=== PATIENT | female | born 1990 | race Caucasian/White ===

== ENCOUNTER 2017-03-05 15:52 | Inpatient (IN) | payer OTHER ==
[~2017-03-05] VITALS: Ht 170.2 cm; Wt 80.7 kg
[2017-03-05] MEDS ORDERED: Betameth Ace-Betam SodPhos 6 mg/mL 5 mL Inj IM ONE (16:25)
[2017-03-05 16:37] LABS: Mean Corpuscular Hemoglobin 30.2 pg (27.0-35.0); Mean Corpuscular Volume 91.3 fL (81-100)
--- NOTE | 2017-03-05 17:30 | DRSVH ---
PROCEDURE: US OB BIOPHYSICAL PROFILE AND UMBILICAL DOPPLER INDICATIONS: 26 year-old female with gestational hypertension. OUTSIDE/PRIOR DATING DATA: Last menstrual period (LMP): June 14, 2016. LMP-based estimated date of delivery (JERMAIN): March 21, 2017. First dating scan (date and location): September 11, 2016 at [facility]. Estimated date of delivery (JERMAIN) from first dating scan: April 07, 2017. TECHNIQUE: Real-time scanning was performed of the fetus for biophysical profile, with image documentation. Col or and pulse Doppler interrogation was also performed of the umbilical artery near its insertion into the placenta. COMPARISON: [facility] Ultrasound, US, US OB BIOPHYSICAL+UMB DOP, 03/01/2017, 7:35. [facility] Ultrasound, US, US OB BIOPHYSICAL+UMB DOP, 02/19/2017, 7:36. [facility], [facility], US OB FU GROWTH+BPP+UMB DOP, 02/12/2017, 8:05. [facility] Ultrasoun d, US, US OB REEVAL INCOMP ANATMY LTD, 01/09/2017, 7:45. [facility] Ultrasound, US, US O B FOLLOW UP PER FETUS LTD, 12/08/2016, 16:44. [facility] Ultrasound, US, US OB>14 WKS AN ATOMY COMP, 11/09/2016, 7:31. [facility], US, US OB<14 WKS, 09/11/2016, 8:53. FINDINGS: General: A single living intrauterine gestation is present. Presentation: Vertex. Placenta: Placental position is posterior, without previa. OB-ELEVATOR EXAMINER AND ADJUSTER Ultrasound Procedure Report Summary Fetus Summary Heart Rate: 146 bpm Gestational Age from initial dating scan: 35 weeks, 2 days Findings(Amniotic Sac) Amniotic Fluid Index (TAM): 13.50 cm Pelvis and Uterus Cervix Length (Mean): Obscured by cranium. Biophysical Profile Amniotic Fluid Volume: 2 Breathin Gross Body Movement: 2 Tone: 2 Biophysical Profile Sum Score: 8 Findings(Pelvic Vascular Structure) Umbilical Artery S/D Ratio: 3.09, 2.64, 2.92 IMPRESSION: 1. Single living intrauterine gestation scores 8 of 8 points on biophysical profile. 2. Normal umbilical artery Doppler interrogation, with preserved maternal diastolic flow to the fetus . Dictated by: Benedicto Chew M.D. on 03/05/2017 at 17:23 Approved by: Benedicto Chew M.D. on 03/05/2017 at 17:28
[2017-03-05] MEDS ORDERED: Hemorrhage Kit, Post Partum XX ONE (17:35)
[2017-03-05] MEDS ORDERED: Methylergonovine 0.2 mg/mL Inj IM PRN (17:35)
[2017-03-05] MEDS ORDERED: Sodium Chloride LOK Flush 10 mL Syringe IVFLUSH PRN (17:35)
[2017-03-05] MEDS ORDERED: hydrALAZINE 20 mg/mL Inj IVPUSH PRN (17:35)
[2017-03-05] MEDS ORDERED: Ondansetron 2 mg/mL 2 mL Inj IVPUSH PRN (17:35)
[2017-03-05] MEDS ORDERED: Oxytocin 10 Unit/mL Inj IM PRN (17:35)
[2017-03-05] MEDS ORDERED: Labetalol 5 mg/mL 4 mL Inj IV PRN (17:35)
[2017-03-05] MEDS ORDERED: Carboprost 250 mCg/mL Inj IM PRN (17:35)
[2017-03-05] MEDS ORDERED: PREN1TAB87 PO (18:04)
--- NOTE | 2017-03-05 18:32 | PCM.HPOB ---
Subjective Referring Provider: Admitting Physician: Jazz Short MD Primary Care Physician: Nopcp Attending Physician: Jazz Short MD Chief Complaint elevated blood pressure History of Present History of Present Illness Ms. Rod is a 26 y/o woman at 35 weeks 2 days gestation who presented to the [facility] ([facility]) after an elevated blood pressure reading and nonreactive NST at her office visit. She has been getting weekly NSTs and ultrasounds. She had previously elevated blood pressures at visits. Her blood pressure at 22 weeks 3 days was 140/80 but decreased to 122/ 72 after resting. Her blood pressure was again elevated at 32 weeks 2 days in 140/90s. At that time, PIH labs and random protein/Cr ratio were done, and she was started on weekly testing and PID labs weekly. One week ago, her blood pressure was 160s/90s initially in the office but decreased to 142/98. She was then sent to [facility] for blood pressure monitoring and PIH labs. Today, her blood pressure was 172/84 and her NST was nonreactive in the office. She also had protein in her urine. She was sent to the [facility] and given betamethasone in triage. She does not have contractions or fluid leakage. She has bilateral leg edema but it has improved over the past week. She does not have a headache, blurred vision, dizziness, right upper quadrant pain, or numbness or tingling anywhere. labs: blood type O positive, antibody screen negative, Pap smear negative, Varicella immune, Rubella immune, RPR nonreactive, HBsAg negative, HIV nonreactive, hepatitis C negative, TSH 0.935, chlamydia and gonorrhea negative, 1 hour glucose test within normal limits She received Tdap last week on 02/26/17. OB History: (2), Para (0) Obstetrical Complications: Pre-eclampsia Past Medical History Obstetrical History: G2PO She has history of 1 spontaneous Gynecologic History: Age of menarche 11 y/o No history of STIs No history of abnormal Pap smear Medical History: Denies Surgical History: Tonsillectomy [place] teeth removal Hx Tobacco Use: No Hx Alcohol Use: No Hx Substance Use: No Past Family History Family History breast cancer in maternal aunt and grandmother (genetic testing was done and it is not hereditary) heart disease in maternal grandmother hyperlipidemia in mother Living Arrangement: with Family Review of Systems Constitutional: Y: Chills, Fever Eyes: Denies: Blurred Vision, Double Vision, Vision Changes Cardiovascular: Reports: Edema (in bilateral legs), Denies: Chest Pain, Palpitations, SOB while laying flat Respiratory: Denies: Cough, Pleuritic Chest Pain, SOB with Exertion Gastrointestinal: Denies: Abdominal Pain, Diarrhea, Epigastric pain, Nausea, Vomiting Genitourinary: Denies: Change in Frequency, Dysuria Neurological: Denies: Dizziness, Numbness Endocrine: Reports: Diaphoresis Medications Home medications vitamin Allergy Coded Allergies: No Known Allergies (Unverified , 03/05/17) Exam Vital Signs hypertensive with one diastolic blood pressure of 100, averaging in 135-140s/90s Exam FHR baseline 130-140s with variability and occasional accelerations Constitutional: Well-developed, Well-nourished HEENT: Atraumatic, EOMI, Scleral Anicteric, Mucous Membr Moist/[place] Lungs: Clear to Auscultation, Normal Air Movement Heart: Exam Unremarkable, Regular Rate/Rhythm, Normal S1, Normal S2, No Murmurs /Rubs/Gallops Abdomen: Gravid, Normal bowel sounds, Soft, No tenderness Extremities: Pulses Palpable x4, Warm, Edema (mild bilateral leg edema) Neurological/Psychiatric: Oriented X3, Cooperative, No Acute Distress Neuro: Grossly Neurologically Intact Labs/Diagnostics Labs Item Value Date Time Urine Random Creatinine 100 mg/dL 03/05/17 1640 Urine Random Total Protein 107 mg/dL H 03/05/17 1640 Urine Protein/Creatinine Ratio 1.07 03/05/17 1640 Item Value Date Time Hemoglobin 11.5 g/dL L 03/05/17 1625 Hematocrit 34.8 % L 03/05/17 162 Platelet Count 305 dean/L 03/05/171624 Blood Urea Nitrogen 11 mg/dL 03/05/17 1625 Creatinine 0.86 mg/dL 03/05/17 1625 Uric Acid 6.4 mg/dL 03/05/17 1625 Aspartate Amino Transf (AST/SGOT) 19 U/L 03/05/17 1625 Alanine Aminotransferase (ALT/SGPT) 9 U/L 03/05/17 1625 Ultra Sound PROCEDURE: US OB BIOPHYSICAL PROFILE AND UMBILICAL DOPPLER FINDINGS: General: A single living intrauterine gestation is present. Presentation: Vertex. Placenta: Placental position is posterior, without previa. OB-SURVEY PARTY CHIEF Ultrasound Procedure Report Summary Fetus Summary Heart Rate: 146 bpm Gestational Age from initial dating scan: 35 weeks, 2 days Findings(Amniotic Sac) Amniotic Fluid Index (TAM): 13.50 cm Pelvis and Uterus Cervix Length (Mean): Obscured by cranium. Biophysical Profile Amniotic Fluid Volume: 2 Breathin Gross Body Movement: 2 Tone: 2 Biophysical Profile Sum Score: 8 Findings(Pelvic Vascular Structure) Umbilical Artery S/D Ratio: 3.09, 2.64, 2.92 IMPRESSION: 1. Single living intrauterine gestation scores 8 of 8 points on biophysical profile. 2. Normal umbilical artery Doppler interrogation, with preserved maternal diastolic flow to the fetus. Approved by: Benedicto Chew M.D. on 03/05/2017 at 17:28 Maternal Blood Type: O (positive) Group B Strep Results: Not done (yet at this time) Rubella: Immune Lab History: Negative for: Hx Gonorrhea, Hx HIV, Hx Herpes, Hx Syphilis OB Intrapartum Assessment/Plan Assessment 1. 26 y/o woman at 35 weeks 2 days gestation who [facility] ([facility]) after an elevated blood pressure reading and nonreactive NST at her office visit. Complicated by preeclampsia. - Admitted to [facility] for monitoring of blood pressure and FHR - Pt received a dose of betamethasone in triage - GBS to be performed 2. Preeclampsia - Blood pressures in 135-140s/90s. Elevated protein/creatinine ratio of 1.07. - [facility] was called and consulted. They recommended inpatient observation and if blood pressures elevate further, then proceed with induction - If blood pressures remain elevated in 160s/100s, will proceed with induction of labor and pt will likely need magnesium sulfate. - Continue monitoring blood pressure and FHR. Attending Statement The patient was seen and examined together with Riya Burns DO on and I agree with the history, exam and plan as outlined in the note above. Riya Browning DO Mar 05, 2017 17:37 Jazz Short MD Mar 08, 2017 19:24
[2017-03-06] MEDS ORDERED: Morphine PF 1 mg/mL 10 mL Inj ONE (03:33)
[2017-03-06] MEDS ORDERED: CeFAZolin Inj 2 GM in IV Premix 1 EACH IV STA (03:40)
[2017-03-06] MEDS ORDERED: Sodium Citrate-Citric Acid 15 mL Solution PO SCH (03:40)
--- NOTE | 2017-03-06 03:46 | PCM.PNOBIP ---
Subjective Date of Service Mar 06, 2017 Delivery plan: Primary Ceserean Delivery Subjective Called by RN for bradycardia. Patient placed on hands and knees and oxygen mask applied to patient. bradycardia present for 11 minutes down to 70's with return to baseline with decreased variability. Group B Strep Results: Not done (yet at this time) Rubella: Immune Blood Type: O (positive) Labs Laboratory Tests 03/05/17 16:25: White Blood Count 16.2, Red Blood Count 3.81, Hemoglobin 11.5, Hematocrit 34.8, Mean Corpuscular Volume 91.3, Mean Corpuscular Hemoglobin 30.2, Mean Corpuscular Hemoglobin Concent 33.0, Red Cell Distribution Width 12.6, Platelet Count 305, Hematology Comments Exam Vital Signs Vital Signs Contraction frequency in minutes: MVUs: Heart Tracings Heart Tones Baseline bpm Tocometry/IUPC Contraction frequency in minutes: MVUs: Exam General: Alert, Oriented X3, No Acute Distress OB Intrapartum Assessment/Plan Assessment 1. Preeclampsia now with severe range BP and nonreasuring FHT (episode of bradycardia) 2. Category 3 FHT Problems: (1) Preeclampsia Plan: Plan for primary delivery Status: Acute ICD Code: O14.90 Intrapartum plan: Recommend delivery Jazz Short MD Mar 06, 2017 03:46
[2017-03-06] MEDS ORDERED: Morphine PF 1 mg/mL 10 mL Inj INTRATHEC ONE (03:50)
[2017-03-06] MEDS ORDERED: fentaNYL-PF 50 mCg/mL 2 mL Inj IVPUSH PRN (03:50)
[2017-03-06] MEDS ORDERED: Atropine 0.4 mg/mL Inj IV PRN (03:50)
[2017-03-06] MEDS ORDERED: EPHEDrine Sulfate 50 mg/mL Inj IVPUSH PRN ×2 (03:50→03:55)
[2017-03-06] MEDS ORDERED: Ondansetron 2 mg/mL 2 mL Inj IVPUSH PRN ×2 (03:50→03:55)
--- NOTE | 2017-03-06 03:57 | PCM.HPANE ---
Patient Data Surgeon Admitting Provider:Jazz Short MD Attending Provider:Jazz Short MD Primary Care Physician:Jennifer Other Provider:Dea Mancera Anesthesia Reason for Visit Pre Term Labor Check PRE TERM LABOR CHECK Ht/WT & BMI Body Mass Index Allergies Coded Allergies: No Known Allergies (Unverified , 03/05/17) Diabetes History Hx Diabetes?: No MRSA MRSA: No Medications Hypertension Medication: No Home Meds Incl Beta Flex: No Reported Medications Vit W-Ca,Fe,FA(<1 mg) ( Vitamins)1 Each Tablet1 Each PO DAILY 03/05/17 History Hx of Heart Problems?: No Other History/Comments Recent elevated BP's Hx of Respiratory Problem?: No Hx Neurologic Problems?: No Hx of GI Problems?: No Hx of Problems?: No HX of Peritoneal Dialysis: No Female Hx: Positive for:: Currently Hx Musculoskeletal Problems?: No Hx of Psycho/Social Problems?: No Hx Surgeries?: No Hx Any Other Health Problems?: No Hx Diabetes: No Hx Alcohol Use: NoHx Substance Use: No Stop/Bang Risk Assessment Category Category 1A: Patient has history of documented sleep apnea, and HAS NOT received any narcotic, sedative or anesthesia administration during this stay. Category 1B: Patient has history of documented sleep apnea, and HAS received any narcotic , sedative or anesthesia administration during this stay Category 2: Patient has SUSPECTED Obstructive Sleep Apnea, and HAS received any narcotic , sedative or anesthesia administration during this stay. Category 3: Patient has SUSPECTED Obstructive Sleep Apnea and HAS NOT received narcotic, sedative or anesthesia administration during this stay. Category 4: Outpatient in Procedural Areas with known sleep apnea or who screen positive for High Risk via the STOP/BANG questionnaire. Exam Exam General Appearance: Alert, Oriented X3 HEENT/AIRWAY: MP 2, Neck Movement (FROM) Lungs: Clear to Auscultation, Clear to Percussion Heart: Exam Unremarkable, Regular Rate/Rhythm Meds/Labs/Diagnostics Admission Meds Current Medications Betamethasone Acet/Betameth SodPhos (Celestone Soluspan Inj) 12.5 mg ONCE ONCE IM Last administered on 03/05/17t 16:29; Start 03/05/17 at 16:25; Stop at 16:26; Status DC Labs Test 03/05/17 16:25 03/05/17 16:40 White Blood Count 16.2th/mm3 (3.8-10.1) Red Blood Count 3.81mil/mm3 (3.90-5.20) Hemoglobin 11.5g/dL (12.0-15.6) Hematocrit 34.8% (35.0-46.0) Mean Corpuscular Volume 91.3fL (81-100) Mean Corpuscular Hemoglobin 30.2pg (27.0-35.0) Mean Corpuscular Hemoglobin Concent 33.0% (32.0-37.0) Red Cell Distribution Width 12.6% (12.3-15.4) Platelet Count 305bil/L (150-400) Hematology Comments Blood Urea Nitrogen 11mg/dL (6-20) Creatinine 0.86mg/dL (0.57-1.00) Uric Acid 6.4mg/dL (2.6-7.2) Aspartate Amino Transf (AST/SGOT) 19U/L (0-50) Alanine Aminotransferase (ALT/SGPT) 9U/L (0-32) Urine Random Creatinine 100mg/dL (16-392) Urine Random Total Protein 107mg/dL (0-15) Urine Protein/Creatinine Ratio 1.07 Plan Impression Patient chart reviewed, patient interviewed and anesthestic plan with risks, benefits, and alternatives discussed, and informed consent obtained. ASA Physical Status: ASA2 Mod Systemic Disease Anesthetic Plan: SAB Bene/Risks/Altern/Consents: Yes HP Complete Prior to Induction: Yes Other Pt. consented to intrathecal morphine with the SAB Brandon Bustos MD Mar 06, 2017 03:47
[2017-03-06] MEDS ORDERED: Oxytocin 30 Units/500 mL LR 30 UNITS in IV Premix 1 EACH IV PRN (05:25)
[2017-03-06] MEDS ORDERED: Oxytocin 10 Unit/mL Inj IM PRN (05:25)
[2017-03-06] MEDS ORDERED: LANOlin HPA 7 Gm Ointment TOPICAL PRN (05:25)
[2017-03-06] MEDS ORDERED: hydrOXYzine Pamoate 25 mg Capsule PO PRN (05:25)
[2017-03-06] MEDS ORDERED: Carboprost 250 mCg/mL Inj IM PRN (05:25)
[2017-03-06] MEDS ORDERED: Methylergonovine 0.2 mg/mL Inj IM PRN (05:25)
[2017-03-06] MEDS ORDERED: diphenhydrAMINE 50 mg Capsule PO PRN (05:25)
[2017-03-06] MEDS ORDERED: Hemorrhage Kit, Post Partum XX ONE (05:25)
--- NOTE | 2017-03-06 05:32 | PCM.ANEP1 ---
Post Anesthesia Phase 1 PACU Phase 1 Assessment Anesthetic Administered: SAB Level of Alertness: Awake, talking GILLETTE's with Equal Strength: No (SAB) Pain: No Nausea or Vomiting: No Oxygen Delivery: Room Air Lungs: Clear to Auscultation, Clear to Percussion Summary See anesth record for pacu vs. pacu vss Brandon Bustos MD Mar 06, 2017 05:32
--- NOTE | 2017-03-06 05:32 | PCM.ANEP2 ---
Post Anesthesia Evaluation ASA/CMS Post Anesthesia VS in Patient's Normal Range?: Yes Resp Stable; Airway Patent?: Yes CV Function & Hydration Stable: Yes Mental Status Recovered?: Yes Pain control Satisfactory?: Yes N/V Control Satisfactory?: Yes Brandon Bustos MD Mar 06, 2017 05:32
[2017-03-06] MEDS: Lactated Ringer's 1,000 ML IV SCH ×2 (05:51→07:58)
[2017-03-06] MEDS: Acetaminophen IV 1,000 MG in IV Premix 1 EACH IV PRN ×3 (06:03→21:13)
[2017-03-06 08:09] LABS: Mean Corpuscular Hemoglobin 30.1 pg (27.0-35.0)
--- NOTE | 2017-03-06 08:37 | OP ---
[address] [address] OPERATIVE REPORT PATIENT: DANIEL NEWSOME : 1990 MR#: [id number] ADMIT: 03/05/2017 JOB ID: [id number] DATE OF SURGERY: 03/06/2017 PREOPERATIVE DIAGNOSIS(ES): 1. Non-reassuring heart rate tracing Category 3 with bradycardia. 2. Preeclampsia. 3. A 35-week gestation. POSTOPERATIVE DIAGNOSIS(ES): 1. Non-reassuring heart rate tracing Category 3 with bradycardia. 2. Preeclampsia 3. A 35-week gestation. PROCEDURE PERFORMED: Primary low-transverse delivery. SURGEON: Jazz Short MD PLODDER OPERATOR: Rickey Landers MD ANESTHESIA: Spinal. ESTIMATED BLOOD LOSS: 600 mL. COMPLICATIONS: None. PATHOLOGY SENT: Placenta. FINDINGS AT TIME OF SURGERY: Male in a cephalic presentation, with infant weight of 2630 g. Apgars of 9 and 9. The uterus, fallopian tubes, and ovaries were normal in appearance bilaterally. There was a single nuchal cord that was easily reduced. PROCEDURE: The patient was taken to the operating room, where her spinal anesthesia was found be adequate. She was placed in a lithotomy position in a leftward tilt and prepared and draped in the normal sterile fashion. A Pfannenstiel incision was made with a scalpel. This was carried down to the underlying fascia with the Bovie cautery. The fascia was nicked in the midline and the incision extended laterally with the Plata scissors. The fascia was then tented up and the underlying rectus muscle was dissected off with blunt and sharp dissection, both superiorly and inferiorly. The rectus muscles were in midline. The peritoneum was entered sharply with Metzenbaum scissors and with gentle traction. The lower uterine segment was identified, a bladder flap was created, and the uterus incised in a low transverse fashion with the scalpel. The infant was delivered in a cephalic presentation. Delayed cord clamping was performed for 1 minute. The upon delivery had a good grimace and cry. Afterward, the cord was then doubly clamped and ligated and the handed off to the waiting wearing apparel presser. Cord blood was sent. Placenta was removed manually. The uterus was exteriorized, cleared of all clots and debris. The uterus was repaired in two layers with 0-Vicryl suture. Good hemostasis assured. The gutters were then irrigated copiously with normal saline. The uterus was returned to the peritoneal cavity. The fascia was reapproximated with two sutures of 0-Vicryl suture in a running fashion. These were anchored at the apices and tied separately in the midline. Several interrupted sutures of 0 plain gut were used to close subcutaneous layer. The skin was closed with a 4-0 Monocryl in a subcuticular fashion. Dermabond and Steri-Strips applied. All lap, instrument, and needle counts correct x2 at the end of procedure. The patient was taken to her room in good condition. GAYE
[2017-03-06] MEDS ORDERED: Propofol 10,000 mCg/mL 20 mL Inj ONE (09:00)
[2017-03-06] MEDS ORDERED: Phenylephrine/NS 100 mCg/mL 10 mL Syringe IVPUSH ONE (09:00)
[2017-03-06] MEDS ORDERED: EPHEDrine/NS 5 mg/mL 5 mL Syringe ONE (09:00)
[2017-03-06] MEDS ORDERED: Glycopyrrolate 0.2 MG/ML 1mL Inj ONE (09:00)
[2017-03-06] MEDS ORDERED: Ondansetron 2 mg/mL 2 mL Inj ONE (09:00)
[2017-03-06] MEDS ORDERED: Oxytocin 10 Unit/mL Inj ONE (09:00)
[2017-03-06] MEDS ORDERED: Betameth Ace-Betam SodPhos 6 mg/mL 5 mL Inj IM ONE (16:25)
[2017-03-06] MEDS: Sodium Chloride LOK Flush 10 mL Syringe IVFLUSH PRN ×2 (21:17→23:53)
[2017-03-07] MEDS: Sodium Chloride LOK Flush 10 mL Syringe IVFLUSH PRN (06:00)
[2017-03-07 06:41] LABS: Mean Corpuscular Hemoglobin 29.6 pg (27.0-35.0); Mean Corpuscular Volume 92.5 fL (81-100)
--- NOTE | 2017-03-07 07:20 | PCM.PNOBPP ---
Subjective Date of Service Mar 07, 2017 Post : Primary Ceserean Delivery Subjective Ms. Rod is a 26 y/o now P1 woman who is s/p primary section for bradycardia and preeclampsia. Today is post-operative and post- day 1. She states that she is feeling well. Her pain is minimal and well controlled with Toradol. She is sensitive to the Percocet she received. She does not have nausea or vomiting. She is urinating without any issues. She is passing gas but has not had a bowel movement yet. She has been walking in the halls to the nursery without difficulty. Lochia: Light Pain Management: PO pain meds Gastrointestinal: Good Appetite, No N/V, Passing Flatus Postop Activity: Ambulating Independently, Ambulating in [place] Group B Strep Results: Not done (yet at this time) Rubella: Immune Blood Type: O (positive) Labs Laboratory Tests 03/05/17 16:25: Hematology Comments 03/07/17 06:20: White Blood Count 20.9, Red Blood Count 3.62, Hemoglobin 10.7, Hematocrit 33.5, Mean Corpuscular Volume 92.5, Mean Corpuscular Hemoglobin 29.6, Mean Corpuscular Hemoglobin Concent 31.9, Red Cell Distribution Width 12.8, Platelet Count 320 Exam Vital Signs Vital Signs: VS reviewed, stable Exam Abdomen: Uterus is, Fundus firm, Abdomen soft, Abdomen appropriately tender : Voiding without difficulty Extremities: No tenderness/swelling Lungs: Clear to Auscultation, Normal Air Movement Heart: Exam Unremarkable, Regular Rate/Rhythm, Normal S1, Normal S2, No Murmurs /Rubs/Gallops General: Alert, Oriented X3, Cooperative, No Acute Distress Surgical Wound : Incision General Appearence: Steri Strips, Intact, No Erythemia, No Discharge, No Inflammatory Changes, Wound under dressing Dressing & Drainage Status: Dry & Intact OB Post Assessment/Plan Assessment 1. 26 y/o now P1 woman at 35 weeks 2 days gestation. Her was complicated by preeclampsia. She is s/p primary section for bradycardia and preeclampsia with blood pressures in the severe range. Today is post-operative and post- day 1. - She had a male with Apgars 9 and 9 weighing 2632 g on 03/06/17 - Added PO Tylenol as needed for pain to her pain management regimen - Continue post- care 2. Preeclampsia, stable - Episode of elevated blood pressure associated with activity and anxiety. Now averaging 130s/80s. - Continue monitoring blood pressure Problems: (1) Preeclampsia Status: Acute ICD Code: O14.90 Pain Evaluation: Adequate Pain Control VTE Mechanical Devices: Intermittant Pneumatic CD Post plan: Continue routine post care, Discharge home tomorrow Riya Browning DO Mar 07, 2017 07:20
[2017-03-08] MEDS ORDERED: FERR-83 PO (07:03)
[2017-03-08] MEDS ORDERED: IBUP800T28 PO (07:03)
[2017-03-08] MEDS ORDERED: DOCU-41 PO (07:03)
[2017-03-08] MEDS ORDERED: ASCO-294 PO (07:03)
--- NOTE | 2017-03-08 07:08 | PCM.DIOB ---
Obstetrical Disch Instruction Date of Service: Mar 08, 2017 Dates of Hospitalization Date of Hospital Admission Mar 05, 2017 at 17:34 Providers Admitting Physician: Jazz Short MD Primary Care Physician: Jennifer Attending Physician: Jazz Short MD Discharge Diagnosis Problems: (1) Preeclampsia Status: Acute ICD Code: O14.90 (2) Status post primary low transverse section Status: Acute ICD Code: Z98.891 Diet Discharge Diet: No restrictions Activity Discharge Activity-General: Pelvic Rest for 6 weeks, Balance rest and activity , No lifting >15 pounds for 2 weeks, No lifting >10 pounds for 4-6 weeks Dressing and Incisional Care Dressing Care: Keep dressing clean, dry & intact, Allow Steri Stripes to fall off Hygiene: May shower, Wash incision with soap & water Additional Instructions Discharge Instructions Continue your vitamin. Please take the iron and vitamin c together for your anemia. Iron can give you constipation so you have also been given a prescription for docusate to keep you regular. Be sure to follow up in 2 weeks and then again in 6 weeks at [facility]. Pelvic rest for 6 weeks (nothing per vagina including intercourse, tampons) If you have a fever greater than 100.4, please call [facility]. There is always someone operations manager/coordinator to talk to. If you have an increase in bleeding, call [facility]. If you have a lot of bleeding suddenly, especially if you have symptoms of dizziness & weakness with it, get emergency help. If you start experiencing extreme depression, especially if you feel that you are a danger to yourself or your family, seek emergency help. You have been through a lot -- BE SURE TO TAKE CARE OF YOURSELF. You have been sent home with the following prescriptions: - Colace 100 mg twice a day as needed for constipation. - Ferrous sulfate 325 mg every day. - Vitamin C 500 mg every day. Take with iron. - Ibuprofen 800mg take 1 tab every 8 hours as needed for pain. Take with a meal. Follow-up in 2 and 6 weeks with [facility]. Check your blood pressure and if you have a blood pressure 160/100 or more, please call. Follow Up Plan Follow-up Provider (F9): [facility] Follow-up appointment: Weeks (2 and 6 weeks) Call your provider for: Fever or Chills, Shortness of breath, Heavy vaginal bleeding, Epigastric pain, Excessive constipation, Vaginal discomfort, Red painful breasts, Other (unilateral leg swelling or painful swollen legs) Riya Browning DO Mar 08, 2017 07:08
--- NOTE | 2017-03-08 11:26 | PATH ---
SURGICAL PATHOLOGY Attending Physician:Jazz Short, CASE STATUS: Signed Out PATIENT NAME: DANIEL NEWSOME PID: [id number] : 1990 DATE COLLECTED:03/06/2017 17:01 SPECIMEN: Placenta CLINICAL HISTORY: 35 WKS GESTATION PREECLAMPSIA 1). PLACENTA FINAL DIAGNOSIS: 1.PLACENTA WITH UMBILICAL CORD AND MEMBRANES: 1. PLACENTA: 276 GRAMS, WHICH IS APPROXIMATELY THE 5TH PERCENTILE FOR 35 WEEKS GESTATION. SMALL MARGINAL INFARCT MEASURING 1.0 X 0.3 CM ON THE SLIDE. NEGATIVE FOR SIGNIFICANT VASCULAR LESIONS. NEGATIVE FOR SIGNIFICANT INFLAMMATION. 2. UMBILICAL CORD: 2.5 CM IN LENGTH WITH THREE NORMAL BLOOD VESSELS. CORD IS ATTACHED 9.5 CM FROM THE PLACENTAL EDGE. NEGATIVE FOR SIGNIFICANT INFLAMMATION. 3. MEMBRANES: RUPTURED 4.5 CM FROM THE FREE PLACENTAL EDGE. NEGATIVE FOR SIGNIFICANT INFLAMMATION. ICD10 CODE O14.93 O43.813 GROSS DESCRIPTION: The specimen is received in formalin, labeled with the patient's name and consists of an intact placenta and includes placental disc (276 g, 16.5 x 16.3 x 2.0 cm), umbilical cord (length-2.5 cm, diameter-1.4 x 1.3 cm) and membranes. The membranes are ruptured 4.5 cm from the free edge of the placenta and are translucent. The umbilical cord is attached 9.5 cm from the edge of the placenta and contains 3 vessels. The surface is smooth and shiny and contains a dorantes-white focal opacity (0.7 x 0.6 cm) involving less than 5% of the surface. No evidence of meconium is identified. The maternal surface is dark maroon with normal cotyledon formation. The placental disc is spongy with no hematomas, infarcts, nodules, masses, or lesions identified. Section code: (A) edge of placenta with membranes, umbilical cord; (B-E) placenta, 4 full thickness sections. 03/07/17 MICRO DESCRIPTION: See diagnosis. ICD-9 CODES: CPT CODES: 1: 91605 Electronically Signed Out Tai Hampton MD [facility] Pathology [facility] [address], [place] [address] Technical component performed at [facility], [address], [place], [address]
[2017-03-08 11:27] VITALS: BP 130/90; PULSE 88; RESP 18
--- NOTE | 2017-03-09 01:09 | PCM.DC.OB ---
Obstetrical Discharge Summary Date of Service Mar 09, 2017 Date of hospital admission Mar 05, 2017 at 17:34 Date of Discharge: Mar 08, 2017 Providers Admitting Physician: Jazz Short MD Primary Care Physician: Jennifer Attending Physician: Jazz Short MD Diagnosis at Time of Discharge 1. 26 y/o now P1 woman at 35 weeks gestation. Her was complicated by preeclampsia. She is s/p primary section for bradycardia and preeclampsia with blood pressures in the severe range. 2. Preeclampsia Problems: (1) Preeclampsia Status: Acute ICD Code: O14.90 (2) Status post primary low transverse section Status: Acute ICD Code: Z98.891 Invasive procedures Primary low-transverse delivery Date of Procedure: Mar 06, 2017 Brief History and Physical: From the history and physical performed on 03/05/17: Ms. Rod is a 26 y/o woman at 35 weeks 2 days gestation who presented to the [facility] after an elevated blood pressure reading and nonreactive NST at her office visit. She has been getting weekly NSTs and ultrasounds. She had previously elevated blood pressures at visits. Her blood pressure at 22 weeks 3 days was 140/80 but decreased to 122/ 72 after resting. Her blood pressure was again elevated at 32 weeks 2 days in 140/90s. At that time, PIH labs and random protein/Cr ratio were done, and she was started on weekly testing and PID labs weekly. One week ago, her blood pressure was 160s/90s initially in the office but decreased to 142/98. She was then sent to [facility] for blood pressure monitoring and PIH labs. Today, her blood pressure was 172/84 and her NST was nonreactive in the office. She also had protein in her urine. She was sent to the [facility] and given betamethasone in triage. She does not have contractions or fluid leakage. She has bilateral leg edema but it has improved over the past week. She does not have a headache, blurred vision, dizziness, right upper quadrant pain, or numbness or tingling anywhere. labs: blood type O positive, antibody screen negative, Pap smear negative, Varicella immune, Rubella immune, RPR nonreactive, HBsAg negative, HIV nonreactive, hepatitis C negative, TSH 0.935, chlamydia and gonorrhea negative, 1 hour glucose test within normal limits She received Tdap last week on 02/26/17. Hospital Course: 1. 26 y/o now P1 woman at 35 weeks 2 days gestation. Her was complicated by preeclampsia. She is s/p primary section for bradycardia and preeclampsia with blood pressures in the severe range. She was discharged on post-operative and post- day 2. - She had a male with Apgars 9 and 9 weighing 2632 g on 03/06/17. - Her pain was controlled with ibuprofen as needed. She had a good appetite. She did not have nausea, vomiting, dysuria, abnormal bowel movement, or leg pain. On exam, her surgical incision was well approximated with Steri strips intact without surrounding erythema, edema, or drainage. Her lungs were clear to auscultation and heart was a regular rate and rhythm without murmurs or extra sounds. Her legs were mildly edematous at the bilateral feet and ankles without tenderness. 2. Preeclampsia, stable - Now averaging 130s/80s. - Continue monitoring blood pressure at follow up appointments Ascorbate Calcium (Vitamin C) 500 Mg Tablet 500 MG PO DAILY Prescribed by: SHAHRZAD MARK DO Docusate Sodium (Colace) 100 Mg Capsule 100 MG PO BID PRN PRN For Constipation Prescribed by: SHAHRZAD MARK DO Ferrous Sulfate (Ferrous Sulfate) 325 Mg Tablet 325 MG PO DAILY Prescribed by: SHAHRZAD MARK DO Ibuprofen (Ibuprofen) 800 Mg Tablet 800 MG PO TID PRN PRN For Pain Prescribed by: SHAHRZAD MARK DO Vit W-Ca,Fe,FA(<1 mg) ( Vitamins) 1 Each Tablet 1 EACH PO DAILY (Reported) Discharge Diet: No restrictions Discharge Activity-General: Pelvic Rest for 6 weeks, Balance rest and activity , No lifting >15 pounds for 2 weeks Patient instructions Continue your vitamin. Please take the iron and vitamin c together for your anemia. Iron can give you constipation so you have also been given a prescription for docusate to keep you regular. Be sure to follow up in 2 weeks and then again in [facility] at [facility]. Pelvic rest for 6 weeks (nothing per vagina including intercourse, tampons) If you have a fever greater than 100.4, please call [facility]. There is always someone prison psychiatrist to talk to. If you have an increase in bleeding, call [facility]. If you have a lot of bleeding suddenly, especially if you have symptoms of dizziness & weakness with it, get emergency help. If you start experiencing extreme depression, especially if you feel that you are a danger to yourself or your family, seek emergency help. You have been through a lot -- BE SURE TO TAKE CARE OF YOURSELF. You have been sent home with the following prescriptions: - Colace 100 mg twice a day as needed for constipation. - Ferrous sulfate 325 mg every day. - Vitamin C 500 mg every day. Take with iron. - Ibuprofen 800mg take 1 tab every 8 hours as needed for pain. Take with a meal. Follow-up in 2 and 6 weeks with [facility]. Check your blood pressure and if you have a blood pressure 160/100 or more, please call. copies to: Jazz Short MD, Marissa L DO Mar 09, 2017 01:09
== END 2017-03-08 12:00 | disposition home or self-care (01) | DRG 766 ==
LOC: FBCO 15:52 → FBC 17:34
PROVIDERS: ADMIT Obstetrics & Gynecology; ATTEND Obstetrics & Gynecology
PROC: 10D00Z1 Extraction of Products of Conception, Low, Open Approach (ICD-10-PCS; principal; 2017-03-06 04:00)
DX: O76 Abnormality in fetal heart rate and rhythm complicating labor and delivery (principal); O14.14 Severe pre-eclampsia complicating childbirth; Z3A.35 35 weeks gestation of pregnancy; Z37.0 Single live birth